=== PATIENT | female | born 2000 | race Caucasian/White ===

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

== ENCOUNTER 2020-04-16 10:37 | Emergency (ER) | payer OTHER ==
[~2020-04-16 10:37] MED LIST: IBUPROFEN800 MG PO; KEFLEX CAP 500500 MG PO; PROTONIX40 MG PO
[2020-04-16 11:15] LABS: HEMOGLOBIN 13.2 gm/dl (12.3-15.3); RED BLOOD COUNT 4.39 M/UL (4.00-5.10); WHITE BLOOD COUNT 8.3 K/UL (4.5-11.0)
[2020-04-16 11:34] LABS: BUN/CREATININE RATIO 18 (0-10)
[2020-04-16] MEDS ORDERED: KEPPRA250 MG PO (14:35)
== END 2020-04-16 15:20 | disposition home or self-care (01) ==
LOC: ER1 10:37
PROVIDERS: Emergency Medicine
DX: G40.909 Epilepsy, unspecified, not intractable, without status epilepticus (principal); F17.290 Nicotine dependence, other tobacco product, uncomplicated; Z79.899 Other long term (current) drug therapy
CPT/HCPCS: 70450; 71045; 80053; 80307; 81001; 83605; 84703; 85025; 93005; 99285; J2060; J7030

== ENCOUNTER → 2020-05-06 | Outpatient (CLI) | payer OTHER ==
[~2020-05-06] MED LIST changes: +KEPPRA250 MG PO
== END ==
LOC: MRI 12:42
DX: G40.909 Epilepsy, unspecified, not intractable, without status epilepticus (principal); Z53.9 Procedure and treatment not carried out, unspecified reason

== ENCOUNTER 2020-05-12 12:12 | Emergency (ER) | payer OTHER | END 2020-05-12 15:57 | disposition home or self-care (01) | LOC: ER1 12:12 | DX: S01.511A Laceration without foreign body of lip, initial encounter (principal); S06.9X9A Unspecified intracranial injury with loss of consciousness of unspecified duration, initial encounter; F17.290 Nicotine dependence, other tobacco product, uncomplicated; Y04.2XXA Assault by strike against or bumped into by another person, initial encounter | CPT/HCPCS: 40650; 70450; 70486; 99283 ==

== ENCOUNTER → 2020-05-20 | Outpatient (CLI) | payer OTHER | LOC: MRI 08:26 | DX: G40.909 Epilepsy, unspecified, not intractable, without status epilepticus (principal) | CPT/HCPCS: 70553; A9577 ==